=== PATIENT | male | born 1950 | race Caucasian/White ===

== ENCOUNTER 2022-07-13 20:10 | Emergency (ER) | payer MEDICARE ==
[2022-07-13] MEDS ORDERED: Azithromycin 250 MG Tab ONE (21:30)
== END 2022-07-13 21:45 | disposition home or self-care (01) ==
LOC: LB.ED 20:10
DX: J98.11 Atelectasis (principal); E78.00 Pure hypercholesterolemia, unspecified; I10 Essential (primary) hypertension; E10.9 Type 1 diabetes mellitus without complications; Z86.16 Personal history of COVID-19; Z88.8 Allergy status to other drugs, medicaments and biological substances; Z79.01 Long term (current) use of anticoagulants; Z79.899 Other long term (current) drug therapy
CPT/HCPCS: 36415; 71045; 80048; 85027; 87804; 99283; A9270; 99281